=== PATIENT | female | born 1965 | race Caucasian/White ===

== ENCOUNTER 2017-01-14 15:06 | Emergency (ER) | payer OTHER ==
[~2017-01-14] VITALS: Ht 177.8 cm; Wt 112.0 kg
[~2017-01-14 15:06] MED LIST: INDOMETHACIN25 MG PO; METFORMIN HCL500 M3 PO; NORCO 325 MG-51 TAB PO; PREDNISONE 10MG10 M1 PO
[2017-01-14] MEDS ORDERED: METFORMIN HCL1000 M1 PO (18:10)
[2017-01-14] MEDS ORDERED: LISINOPRIL5 M1 PO (18:11)
--- NOTE | 2017-01-14 18:17 | ED GENERAL ADULT ---
History of Present Illness General Chief Complaint: General Adult Stated Complaint: RIGHT SIDE BACK PAIN Source: patient Exam Limitations: no limitations Vital Signs & Intake/Output Vital Signs & Intake/Output Vital Signs Date Time Temp Pulse Resp B/P Pulse O2 O2 Flow FiO2 Ox Delivery Rate 01/14 2142 77 18 106/70 97 Room Air 01/14 2037 98.7 87 18 113/71 97 Room Air 01/14 1953 Room Air 01/14 1759 97.7 86 20 138/90 95 Room Air 01/14 1513 98.1 86 20 137/86 98 Room Air ED Intake and Output 01/15 0000 01/14 1200 Intake Total Output Total Balance Patient 247 lb Weight Allergies Coded Allergies: NO KNOWN ALLERGIES (03/26/12) Reconcile Medications Brompheniramine/Pseudoephed/Dm (Bromfed Dm Cough Syrup) 2 MG-30 MG-10 MG/5 ML SYRUP 5-10 ML PO Q4-6 PRN PRN cough Ibuprofen 800 MG TABLET 1 TAB PO TID pain Lisinopril 5 MG TABLET 1 TAB PO DAILY BP (Reported) Losartan Potassium (Cozaar) 25 MG TABLET 1 TAB PO DAILY blood pressure Metformin HCl 1,000 MG TABLET 1 TAB PO BID DM (Reported) Triage Note: PT TO ED C/O RIGHT UPPER BACK PAIN SINCE THIS AM. STATES THE PAIN IS NOW RADIATING TO THE FRONT. C/O PAIN WITH INSPIRATION. DENIES ANY INJURY. Triage Nurses Notes Reviewed? yes Onset: Abrupt Timing: recent history Injury Environment: home No Modifying Factors: none HPI: 52-YEAR-OLD FEMALE COMES INTO EMERGENCY ROOM FOR FURTHER EVALUATION OF cough, body aches, right-sided chest pain and right-sided back pain that is worse with deep breath. Patient reports that she's had this persisting cough for about a month. She was initially sick with upper a story symptoms of congestion and phlegm. The cough has been persistent. Patient reports she was started on lisinopril around the same time as the cough with the cough and been going on prior to the blood pressure medication. She reports that she's been coughing so much that she has been reporting pain in her chest. Denies any vomiting. Nothing seems immediately better. (VINICIO NORTON,LINDA) Past History Travel History Traveled to [place] past 21 day No Medical History Any Pertinent Medical History? see below for history Neurological: NONE EENT: NONE Cardiovascular: HTN () Respiratory: NONE Gastrointestinal: HERNIA Hepatic: NONE Renal: NONE Musculoskeletal: rheumatoid arthritis Psychiatric: NONE Endocrine: NONE Blood Disorders: NONE Cancer(s): NONE LOAN CONSULTANT/Reproductive: NONE Surgical History Surgical History: non-contributory Psychosocial History What is your primary language Bangladeshi Tobacco Use: Current Daily Use Daily Tobacco Use Amount/Type: => 5 Cigarettes daily ETOH Use: denies use Illicit Drug Use: denies illicit drug use Family History Hx Contributory? No (LINDA HARDWICK) Review of Systems Review of Systems Constitutional: Reports: see HPI. EENTM: Reports: see HPI. Respiratory: Reports: see HPI. Cardiovascular: Reports: see HPI. GI: Reports: no symptoms. Genitourinary: Reports: no symptoms. Musculoskeletal: Reports: no symptoms. Skin: Reports: no symptoms. Neurological/Psychological: Reports: no symptoms. Hematologic/Endocrine: Reports: no symptoms. Immunologic/Allergic: Reports: no symptoms. All Other Systems: Reviewed and Negative (LINDA HARDWICK) Physical Exam Physical Exam General Appearance: well developed/nourished, no apparent distress, alert Head: atraumatic, normal appearance Eyes: Bilateral: normal appearance. Ears, Nose, Throat: normal ENT inspection, hearing grossly normal Neck: normal inspection Respiratory: no respiratory distress, decreased breath sounds Cardiovascular: regular rate/rhythm Back: normal range of motion Extremities: normal inspection, normal range of motion Neurologic/Psych: awake, alert, oriented x 3, normal gait, normal mood/affect Skin: intact, normal color Core Measures ACS in differential dx? No CVA/TIA Diagnosis: No Severe Sepsis Present: No Septic Shock Present: No (LINDA HARDWICK) Progress Differential Diagnoses I considered the following diagnoses in my evaluation of the patient: Pneumonia , bronchitis, muscular pain, CT, pulmonary embolism, lisinopril induced cough, Plan of Care: Orders Procedure Date/time Status TROPONIN LEVEL 01/15 1812 Complete D-DIMER 01/15 1812 Complete COMPREHENSIVE METABOLIC PANEL 01/15 1812 Complete CBC WITHOUT DIFFERENTIAL 01/15 1812 Complete EKG 01/15 1812 Active Laboratory Tests 01/14/17 1851: Anion Gap 10, Estimated GFR > 60, BUN/Creatinine Ratio 14.3, Glucose 140 H, Calcium 9.4, Total Bilirubin 0.7, AST 50 H, ALT 68 H, Alkaline Phosphatase 92, Troponin I < 0.01, Total Protein 7.0, Albumin 4.0, Globulin 3.0, Albumin/ Globulin Ratio 1.3, D-Dimer 915 H, CBC w Diff NO MAN DIFF REQ, RBC 5.49 H, MCV 84.1, MCH 27.9, RDW 14.1, MPV 7.6, Gran % 71.6, Lymphocytes % 20.4 L, Monocytes % 6.3, Eosinophils % 1.3, Basophils % 0.4, Absolute Granulocytes 7.4 H, Absolute Lymphocytes 2.1, Absolute Monocytes 0.7 H, Absolute Eosinophils 0.1, Absolute Basophils 0, PUBS MCHC 33.1 Diagnostic Imaging: Viewed by Me: Radiology Read. Discussed w/RAD: Radiology Read. Radiology Impression: SERVICE DATE: 01/14/17 EXAM TYPE: RAD - XRY-CHEST XRAY, PA AND LATERAL EXAMINATION: XR CHEST CLINICAL INFORMATION: 52-year-old female with pleuritic chest pain on the right side radiating to the back. Cough. COMPARISON: Available TECHNIQUE: 2 views of the chest were obtained. FINDINGS: No significant abnormality is noted involving the heart, lungs, mediastinum, bony thorax or soft tissues. IMPRESSION: Unremarkable examination. DICTATED BY: VIPUL PEREZ MD DATE/TIME DICTATED:01/14/171846 WINDSHIELD TECHNICIAN: CORY DATE/TIME TRANSCRIBED:01/14/171846 Initial ED EKG: normal intervals, normal p-waves, normal QRS complex, normal sinus rhythm, rate (77), nonspecific ST T wave chg (LINDA HARDWICK) Departure Departure Disposition: HOME OR SELF CARE Condition: Stable Clinical Impression Primary Impression: Pleuritic chest pain Secondary Impressions: Cough due to ANA MARÍA inhibitor Referrals: SKIP SINGLETON,ALYSSA (PCP/Family) Additional Instructions: Discontinue taking lisinopril and tinkles started in place of it. Take Bromfed as needed for cough. Take prednisone as prescribed. Follow-up with your primary care doctor. Return if any other concerns. Please go over all results of today's visit with your primary care doctor. Contact your primary care doctor to let them know you were here in the emergency room. There may be nonspecific findings which may not be related to your visit today here in the emergency room but may require further evaluation and chronic monitoring by your primary care doctor. If you had a laceration today the chance of foreign body always remains. You should follow-up with your primary care doctor for recheck in 3-5 days for a wound check. If you had an x-ray done there is a chance that a fracture could have been missed on initial read and you should follow-up with your primary care doctor for repeat x-rays if symptoms persist. If your blood pressure was elevated here in the emergency room please have rechecked by her primary care doctor within the next 48 hours by your primary care doctor. If you were prescribed a narcotic here in the emergency room or any type of controlled substances you're not allowed to drive while taking this medication or operate any type of heavy machinery. Narcotics can make you feel lightheaded dizziness nausea and can cause constipation. You may need to picking table worker a stool softener. Thank you for choosing [facility] emergency room. Please return to the emergency room immediately if you have any other concerns worsening of symptoms. Departure Forms: Customer Survey General Discharge Information Prescriptions: Current Visit Scripts Brompheniramine/Pseudoephed/Dm (Bromfed Dm Cough Syrup) 5-10 ML PO Q4-6 PRN PRN cough #120 ML Losartan Potassium (Cozaar) 1 TAB PO DAILY #30 TAB Ibuprofen 1 TAB PO TID #30 TAB Comments 01/14/2017 11:29:54 PM No evidence of pulmonary embolism. Symptoms of pain in chest is more consistent with muscular pain. No signs of pneumonia. I feel the cough is ANA MARÍA inhibitor induced. Patient switched to losartan. Clear to auscultation on exam. Patient is to follow-up with her primary care doctor. Return if any other concerns. Case discussed with Dr. webb. Patient understands and agrees with plan of care. Return if any other concerns. (LINDA HARDWICK) PA/TAB CUTTING MACHINE OPERATOR Co-Sign Statement Statement: ED Attending supervision documentation- [] I saw and evaluated the patient. I have also reviewed all the pertinent lab results and diagnostic results. I agree with the findings and the plan of care as documented in the PA's/TAB CUTTING MACHINE OPERATOR's documentation. [X] I have reviewed the ED Record and agree with the PA's/TAB CUTTING MACHINE OPERATOR's documentation. [] Additions or exceptions (if any) to the PAs/TAB CUTTING MACHINE OPERATOR's note and plan are summarized below: [] (SUSANNA SINGLETON,MARLON) Critical Care Note Critical Care Note Critical Care Time: non-applicable (LINDA HARDWICK)
--- NOTE | 2017-01-14 18:51 | RADIOLOGY REPORT ---
EXAMINATION: XR CHEST CLINICAL INFORMATION: 52-year-old female with pleuritic chest pain on the right side radiating to the back. Cough. COMPARISON: Available TECHNIQUE: 2 views of the chest were obtained. FINDINGS: No significant abnormality is noted involving the heart, lungs, mediastinum, bony thorax or soft tissues. IMPRESSION: Unremarkable examination.
[2017-01-14 19:04] LABS: ABSOLUTE BASOPHIL COUNT 0 /CUMM (0.0-0.2); ABSOLUTE EOSINOPHIL COUNT 0.1 /CUMM (0.0-0.7); ABSOLUTE GRANULOCYTE CT 7.4 /CUMM (1.4-6.5); ABSOLUTE LYMPH COUNT 2.1 /CUMM (1.2-3.4); ABSOLUTE MONOCYTE COUNT 0.7 /CUMM (0.10-0.60); BASOPHIL % 0.4 % (0.0-2.0); EOSINOPHIL % 1.3 % (0-5); GRANULOCYTE % 71.6 % (42.2-75.2); HEMATOCRIT 46.2 % (37-47); MEAN CORPUSCULAR HGB 27.9 PG (27.0-31.0); MEAN CORPUSCULAR HGB CONC 33.1 G/DL (33.0-37.0); MEAN CORPUSCULAR VOLUME 84.1 FL (81.0-99.0); MEAN PLATELET VOLUME 7.6 FL (7.4-10.4); PLATELET COUNT 249 /CUMM (130-400); RBC DISTRIBUTION WIDTH 14.1 % (11.5-14.5); RED BLOOD CELL CT 5.49 /CUMM (4.20-5.40); WHITE BLOOD CELL COUNT 10.4 /CUMM (4.8-10.8)
--- NOTE | 2017-01-14 21:25 | CT SCAN REPORT ---
EXAMINATION: CT ANGIOGRAM OF THE CHEST WITH AND WITHOUT CONTRAST (CT PULMONARY ANGIOGRAM FOR PE) CLINICAL INFORMATION: 52-year-old female with shortness of breath and chest pain. Chest pain is pleuritic in nature. Duration one day. COMPARISON: Chest x-ray done earlier this evening. TECHNIQUE: Prior to contrast administration, noncontrast localization images were obtained. Subsequently, multidetector volumetric imaging was performed from the thoracic inlet to below the diaphragms following the administration of 95 mL Optiray 350 intravenous contrast. No contrast reaction reported. Sagittal, coronal, and MIP oblique sagittal reformatted images were obtained on the CT workstation, uploaded to PACS, and reviewed. Total exam dose-length product 478 mGy-cm. FINDINGS: QUALITY OF STUDY/CONTRAST BOLUS: Excellent PULMONARY ARTERIES: No central or segmental pulmonary emboli. THORACIC AORTA: No aneurysm or dissection. LUNG: No focal consolidation, nodules or masses. PLEURA: No pleural effusion or pneumothorax. MEDIASTINUM: Normal heart size. There is a moderate degree of mediastinal lipomatosis. Very small pericardial effusion. A number of subcentimeter lymph nodes are present in the mediastinum and both hilar regions. No evidence of septal bowing or right heart strain. CHEST WALL/AXILLA: No axillary or internal mammary lymphadenopathy. OSSEOUS STRUCTURES: No acute or suspicious osseous abnormality. UPPER ABDOMEN: Unremarkable. No reflux of contrast into the hepatic veins to suggest elevated right heart pressures. IMPRESSION: No evidence of pulmonary emboli. VTE: Negative.
[2017-01-14] MEDS ORDERED: BROMFED DM COU118 M1 PO (21:32)
[2017-01-14] MEDS ORDERED: COZAAR25 M1 PO (21:32)
[2017-01-14 21:42] VITALS: BP 106/70
[2017-01-14] MEDS ORDERED: IBUPROFEN800 M1 PO (23:30)
== END 2017-01-14 22:01 ==
LOC: ERH 15:06
PROVIDERS: Physician Assistant Medical
DX: R07.81 Pleurodynia (principal); R05 Cough; T44.5X5A Adverse effect of predominantly beta-adrenoreceptor agonists, initial encounter
CPT/HCPCS: 1263; 93005; 93010; 96372; J1885